=== PATIENT | male | born 1970 | race Caucasian/White ===

== ENCOUNTER 2022-09-22 09:34 | Day surgery (SDC) | payer OTHER ==
[2022-09-21 12:24] VITALS: BMI 27.3
[2022-09-22] MEDS ORDERED: PROPOFOL 120 ML ONE (10:56)
[2022-09-22 12:00] VITALS: BP 112/77; PULSE 81; RESP 19; TEMP 97.8
== END 2022-09-22 11:59 | disposition home or self-care (01) ==
LOC: FASU-ENDO 09:34
PROVIDERS: ATTEND Internal Medicine Gastroenterology
PROC: 0DJD8ZZ Inspection of Lower Intestinal Tract, Via Natural or Artificial Opening Endoscopic (ICD-10-PCS; principal; 2022-09-22 10:46)
DX: Z12.11 Encounter for screening for malignant neoplasm of colon (principal); K64.1 Second degree hemorrhoids